=== PATIENT | female | born 1980 | race Caucasian/White ===

== ENCOUNTER 2016-05-19 13:59 | Emergency (ER) | payer OTHER ==
[~2016-05-19] VITALS: Ht 154.9 cm; Wt 97.9 kg
[~2016-05-19 13:59] MED LIST: RITALIN10 MG PO
[2016-05-19 15:37] LABS: EOSINOPHIL (%) 1.8 % (0-5); EOSINOPHIL COUNT 0.1 K/uL (0-0.3); HEMATOCRIT 39.8 % (36.0-46.0); LYMPHOCYTE COUNT 1.7 K/uL (1.0-2.8); MCH 32.1 PG (29.0-34.0); MCHC 34.9 G/DL (30.0-36.0); MCV 91.9 FL (83-99); MEAN PLAT.VOLUME 10.5 uM^3 (9.5-12.4); MONOCYTE (%) 5.4 % (3-12); MONOCYTE COUNT 0.3 K/uL (0-0.8); NEUTROPHIL (%) 63.4 % (45-76); NEUTROPHIL COUNT 3.8 K/uL (1.8-6.4); PLATELET COUNT 260 K/uL (156-360); RBC DIS.WIDTH-CV 12.2 % (11.8-14.6); RBC DIS.WIDTH-SD 39.8 % (39-53); RED BLOOD COUNT 4.33 M/uL (3.80-5.20)
[2016-05-19 15:45] LABS: CHLORIDE 107 mEq/L (99-109); POTASSIUM 4.1 mEq/L (3.7-5.4); SODIUM 141 mEq/L (136-147)
[2016-05-19 15:46] LABS: GLUCOSE 108 mg/dL (70-99)
[2016-05-19 15:48] LABS: ANION GAP 11 MEQ/L (2-14)
[2016-05-19 15:50] LABS: GFR ESTIMATE (CALCULATED) > 59 mL/min/; SERUM ETHYL ALCOHOL < 10 mg/dL
[2016-05-19 15:52] LABS: UREA NITROGEN (BUN) 6 mg/dL (9-23)
[2016-05-19 15:53] LABS: SALICYLATE < 5.0 MG/DL (15-30)
[2016-05-19 16:50] VITALS: BP 129/79
== END 2016-05-19 16:50 | disposition home or self-care (01) ==
LOC: EME 13:59
PROVIDERS: Emergency Medicine
DX: F41.1 Generalized anxiety disorder (principal); F42.9 Obsessive-compulsive disorder, unspecified; F10.10 Alcohol abuse, uncomplicated; F17.200 Nicotine dependence, unspecified, uncomplicated
CPT/HCPCS: 80048; 84703; 85025; 90839; 99281; 99285; G0480

== ENCOUNTER 2017-01-12 08:16 | Emergency (ER) | payer OTHER ==
[~2017-01-12] VITALS: Ht 154.9 cm; Wt 100.4 kg
[2017-01-12] MEDS ORDERED: MOTRIN800 MG PO (10:09)
[2017-01-12] MEDS ORDERED: LIDODERM 5% P1 PATCH TD (10:09)
[2017-01-12] MEDS ORDERED: FLEXERIL10 MG PO (10:09)
[2017-01-12 10:43] VITALS: BP 120/88
== END 2017-01-12 10:45 | disposition home or self-care (01) ==
LOC: EME 08:16
DX: M62.838 Other muscle spasm (principal); M54.2 Cervicalgia; M25.512 Pain in left shoulder; V49.50XA Passenger injured in collision with unspecified motor vehicles in traffic accident, initial encounter; Y92.410 Unspecified street and highway as the place of occurrence of the external cause
CPT/HCPCS: 99281; 99283

== ENCOUNTER 2017-11-22 22:05 | Inpatient (IN) | payer OTHER ==
[~2017-11-22] VITALS: Ht 154.9 cm; Wt 102.1 kg
[~2017-11-22 22:05] MED LIST changes: +ABILIFY5 MG PO; +BUSPAR10 MG PO; +COLACE100 MG PO; +CYMBALTA60 MG PO; +FLEXERIL10 MG PO; +LIDODERM 5% P1 PATCH TD; +MOTRIN800 MG PO; +VITAMIN D32000 UNI1 PO
[2017-11-23 09:33] VITALS: BP 118/71
[2017-11-23 16:01] VITALS: BP 134/77
[2017-11-23 19:38] VITALS: BP 113/67
[2017-11-24 00:04] VITALS: BP 103/64
[2017-11-24 06:22] LABS: HEMATOCRIT 35.3 % (36.0-46.0); MCH 31.3 PG (29.0-34.0); MCV 91.9 FL (83-99); PLATELET COUNT 218 K/uL (156-360); RBC DIS.WIDTH-CV 12.4 % (11.8-14.6); RBC DIS.WIDTH-SD 41.7 % (39-53); RED BLOOD COUNT 3.84 M/uL (3.80-5.20); WHITE BLOOD COUNT 8.8 K/uL (4.1-10.2)
[2017-11-24 06:47] LABS: CHLORIDE 104 MEQ/L (99-109); CREATININE 0.7 MG/DL (0.6-1.3); GFR ESTIMATE (CALCULATED) > 59 mL/min/; GLUCOSE 101 mg/dL (70-99); POTASSIUM 3.8 MEQ/L (3.7-5.4); SODIUM 138 MEQ/L (136-147); UREA NITROGEN (BUN) 9 mg/dL (9-23)
[2017-11-24 07:00] VITALS: BP 122/72
[2017-11-24] MEDS ORDERED: ZOFRAN4 MG PO (09:36)
[2017-11-24 11:08] VITALS: BP 129/76
== END 2017-11-24 15:33 | disposition home or self-care (01) | DRG 621 ==
LOC: ENRESERV 22:05 → 2SOUTH 11-23 02:21 → 2EASTP 11-23 08:26 → 2SOUTH 11-23 11:21 → ENRESERV 11-23 13:39 → 2SOUTH 11-23 14:25 → ENRESERV 11-23 14:47 → 2SOUTH 11-23 14:53 → 2EASTP 11-23 15:16
PROVIDERS: Surgery
PROC: 0DB64Z3 Excision of Stomach, Percutaneous Endoscopic Approach, Vertical (ICD-10-PCS; principal; 2017-11-23)
DX: E66.01 Morbid (severe) obesity due to excess calories (principal); Z68.41 Body mass index [BMI] 40.0-44.9, adult
CPT/HCPCS: 80048; 85027; 86850; 86900; 86901; 88300; C9113; J0131; J0330; J1100; J1644; J1885; J2405; J2765; J3010; J3480; J7120; Q0175; S0074